=== PATIENT | male | born 1985 | race Caucasian/White ===

== ENCOUNTER 2017-04-05 21:10 | Emergency (ER) | payer MEDICARE, OTHER ==
[~2017-04-05] VITALS: Ht 185.4 cm; Wt 84.1 kg
[~2017-04-05 21:10] MED LIST: ALPRAZOLAM1 MG PO; AMOXICILLIN500 MG OR; AMOXICILLIN500 MG PO; AUGMENTIN500TAB PO; BACTRIM DS1 TAB PO; BACTROBAN2 % EX; BENADRYL 50MG C50 MG PO; BUSPAR10 MG PO; CIPRO500 MG OR; CIPROFLOXACN500 MG PO; CLINDAMYCIN150 MG PO; COGENTIN1 M2 PO; CYCLOBENZAPR10 MG PO; DEPO-MEDROL80 MG/ML IM; DICLOFENAC50 MG PO; FLUOXETINE10 M2 PO; HALDOL1 MG PO; IBUPROFEN800 MG PO; KETOROLAC60 MG/2 ML IJ; KETOROLAC60 MG/2 ML IM; KLONOPIN0.5 MG PO; LORTAB 10 PO; LORTAB 1010 MG PO; LORTAB 5 OR; LORTAB 5/3255 MG PO; LORTAB 7.5 PO; MEDDOSEPAK PO; MELOXICAM7.5 MG PO; MOTRIN800 MG/TAB PO; NAPROSYN375 MG PO; NAPROSYN500 MG OR; NAPROSYN500 MG PO; NO MEDS; PENICILLN VK500 MG OR; PERCOCET 5/325M1 TAB PO; PRILOSEC20 MG OR; PRILOSEC20 MG/CAP PO; ROCEPHIN 1 GM1 GM IM; SEPTRA DS1 TAB OR; SEROQUEL100 MG PO; SERTRALINE HCL50 MG PO; TORADOL OR; TRAMADOL HCL50 MG OR; TRAMADOL HCL50 MG PO; TRILEPTAL150 MG PO; TRILEPTAL300 MG PO; ULTRAM50 M1 PO; ULTRAM50 MG OR; ULTRAM50 MG PO; VICODIN ES1 TAB OR; VICOPROFEN OR; ZOLOFT100 MG PO
[2017-04-05 23:25] VITALS: BP 138/84
== END 2017-04-05 23:25 | disposition home or self-care (01) ==
LOC: ED 21:10
DX: M54.9 Dorsalgia, unspecified (principal); F31.9 Bipolar disorder, unspecified; F41.9 Anxiety disorder, unspecified; K21.9 Gastro-esophageal reflux disease without esophagitis; F17.210 Nicotine dependence, cigarettes, uncomplicated; W10.9XXA Fall (on) (from) unspecified stairs and steps, initial encounter; Y92.009 Unspecified place in unspecified non-institutional (private) residence as the place of occurrence of the external cause

== ENCOUNTER 2018-01-23 14:00 | Emergency (ER) | payer MEDICARE, OTHER ==
[~2018-01-23] VITALS: Ht 185.4 cm; Wt 93.2 kg
[2018-01-23 14:29] VITALS: BP 161/104
[2018-01-23] MEDS ORDERED: ASPERCREME LIDOCA41 TOP (17:05)
[2018-01-23] MEDS ORDERED: MOTRIN400 MG PO (17:05)
== END 2018-01-23 17:30 | disposition left against medical advice (07) ==
LOC: ED 14:00
DX: S39.012A Strain of muscle, fascia and tendon of lower back, initial encounter (principal); S29.012A Strain of muscle and tendon of back wall of thorax, initial encounter; X58.XXXA Exposure to other specified factors, initial encounter; Z91.19 Patient's noncompliance with other medical treatment and regimen

== ENCOUNTER 2018-05-21 01:04 | Emergency (ER) | payer MEDICARE, OTHER ==
[~2018-05-21] VITALS: Ht 185.4 cm; Wt 86.3 kg
[~2018-05-21 01:04] MED LIST changes: +ASPERCREME LIDOCA41 TOP; +MOTRIN400 MG PO
[2018-05-21 01:45] LABS: HEMATOCRIT 40.8 % (39.0-50.0); HEMOGLOBIN 13.5 g/dl (14.0-18.0); IMMATURE GRANULOCYTES 0.5 % (0.0-5.0); MEAN CELL VOLUME 95.3 fL CALC (80.0-100.0); MEAN CORPUSCULAR HGB 31.5 pG CALC (26.0-32.0); MEAN CORPUSCULAR HGB CONC 33.1 g/L CALC (32.0-36.0); NEUT# 10.19 thou/uL (1.82-7.42); RED BLOOD COUNT 4.28 mill/uL (4.70-6.10); RED CELL DISTRI WIDTH 13.5 % (11.5-15.5)
[2018-05-21 01:54] LABS: ALBUMIN 4.3 g/dL (3.2-5.0); ALKALINE PHOSPHATASE 75 u/l (38-126); AMYLASE 39 u/l (30-110); ANION GAP 13 (6-22 (CALC)); BILIRUBIN, TOTAL 0.4 mg/dL (0.0-1.4); BUN 14 mg/dL (9-20); BUN/CREATININE RATIO 18 (12-20 (CALC)); CARBON DIOXIDE 28 mmol/l (22-30); CHLORIDE 106 mmol/l (95-108); CREATININE 0.8 mg/dL (0.7-1.3); GFR > 60 ML/MIN (>=60 (CALC)); GFR FOR AFR.AMER. > 60 ML/MIN (>=60 (CALC)); LIPASE 58 u/l (23-300); POTASSIUM 3.8 mmol/l (3.5-5.1); SGOT/AST 20 u/l (17-59); SGPT/ALT 25 u/l (21-72); SODIUM 142 mmol/l (137-146)
[2018-05-21 02:02] LABS: URINE BLOOD DIPSTICK LARGE (NEGATIVE); URINE COLOR YELLOW; URINE GLUCOSE - DIPSTICK NEGATIVE (NEGATIVE); URINE KETONE TRACE mg/dL (NEGATIVE); URINE LEUK ESTERASE NEGATIVE (NEGATIVE); URINE NITRITE - DIPSTICK NEGATIVE (Negative); URINE PROTEIN - DIPSTICK TRACE mg/dL (NEG-TRACE); URINE SPECIFIC GRAVITY 1.025; URINE UROBILINOGEN - DIPSTICK 0.2 E.U./dL (0.2)
[2018-05-21 02:06] LABS: URINE CLARITY CLOUDY
[2018-05-21 02:07] LABS: URINE BILIRUBIN - DIPSTICK NEGATIVE (NEGATIVE)
[2018-05-21 02:08] LABS: BARBITURATES NEGATIVE (NEGATIVE); COCAINE POSITIVE (NEGATIVE); METHADONE NEGATIVE (NEGATIVE); OXCYCODONE NEGATIVE (NEGATIVE); TETRAHYDROCANNABIONOL POSITIVE (NEGATIVE); TRICYLIC ANTIDEPRESSANTS NEGATIVE (NEGATIVE)
[2018-05-21 02:09] LABS: URINE BACTERIA FEW hpf; URINE MUCUS MANY hpf (NONE-FEW); URINE RBC 25-50 RBC/hpf (0-5); URINE SQUAMOUS EPITHELIAL CELL FEW EPI/hpf (0-FEW)
[2018-05-21 03:03] VITALS: BP 131/34
== END 2018-05-21 03:04 | disposition home or self-care (01) ==
LOC: ED 01:04
PROVIDERS: Family Medicine
DX: N20.0 Calculus of kidney (principal); F17.210 Nicotine dependence, cigarettes, uncomplicated

== ENCOUNTER 2018-05-31 12:22 | Emergency (ER) | payer MEDICARE, OTHER ==
[~2018-05-31] VITALS: Ht 185.4 cm; Wt 90.0 kg
[2018-05-31] MEDS ORDERED: ACULAR LS0.4 % OD (12:53)
[2018-05-31] MEDS ORDERED: ERYTHROMYCIN O3.5 GM OU (12:53)
[2018-05-31 13:10] VITALS: BP 137/84
== END 2018-05-31 13:15 | disposition home or self-care (01) ==
LOC: ED 12:22
DX: S05.01XA Injury of conjunctiva and corneal abrasion without foreign body, right eye, initial encounter (principal); F17.210 Nicotine dependence, cigarettes, uncomplicated; G89.29 Other chronic pain; M54.9 Dorsalgia, unspecified; W20.8XXA Other cause of strike by thrown, projected or falling object, initial encounter; Y93.H2 Activity, gardening and landscaping; Y92.007 Garden or yard of unspecified non-institutional (private) residence as the place of occurrence of the external cause

== ENCOUNTER 2018-10-02 19:51 | Emergency (ER) | payer MEDICARE, OTHER ==
[~2018-10-02] VITALS: Ht 185.4 cm; Wt 81.0 kg
[~2018-10-02 19:51] MED LIST changes: +ACULAR LS0.4 % OD; +ERYTHROMYCIN O3.5 GM OU
[2018-10-02] MEDS ORDERED: NAPROSYN500 MG PO (21:00)
[2018-10-02] MEDS ORDERED: KEFLEX500 M1 PO (21:00)
[2018-10-02 21:05] VITALS: BP 155/85
== END 2018-10-02 21:05 | disposition home or self-care (01) ==
LOC: ED 19:51
DX: L03.011 Cellulitis of right finger (principal); M25.441 Effusion, right hand; M79.644 Pain in right finger(s)

== ENCOUNTER 2020-01-01 | Emergency (ER) | payer MEDICARE, OTHER ==
[~2020-01-01] MED LIST changes: +KEFLEX500 M1 PO
[2020-01-01 19:42] LABS: HEMATOCRIT 40.1 % (39.0-50.0); HEMOGLOBIN 13.1 g/dl (14.0-18.0); IMMATURE GRANULOCYTES 0.4 % (0.0-5.0); MEAN CELL VOLUME 90.3 fL CALC (80.0-100.0); MEAN CORPUSCULAR HGB 29.5 pG CALC (26.0-32.0); MEAN CORPUSCULAR HGB CONC 32.7 g/dL CAL (32.0-36.0); NEUT# 13.2 thou/uL (1.82-7.42); RED BLOOD COUNT 4.44 mill/uL (4.70-6.10); RED CELL DISTRI WIDTH 13.8 % (11.5-15.5)
[2020-01-01 19:59] LABS: ALBUMIN 4.7 g/dL (3.2-5.0); ALKALINE PHOSPHATASE 99 u/l (38-126); BILIRUBIN, TOTAL 0.4 mg/dL (0.0-1.4); BUN 18 mg/dL (9-20); BUN/CREATININE RATIO 19 (12-20 (CALC)); CARBON DIOXIDE 27 mmol/l (22-30); CHLORIDE 101 mmol/l (95-108); CREATININE 0.9 mg/dL (0.7-1.3); GFR > 60 ML/MIN (>=60 (CALC)); GFR FOR AFR.AMER. > 60 ML/MIN (>=60 (CALC)); LIPASE 50 u/l (23-300); SGOT/AST 27 u/l (17-59); SODIUM 137 mmol/l (137-146); TOTAL PROTEIN 7.8 g/dL (6.3-8.2)
[2020-01-01 20:00] LABS: ANION GAP 14 (6-22 (CALC)); POTASSIUM 4.8 mmol/l (3.5-5.1)
== END 2020-01-01 19:44 | disposition left against medical advice (07) ==
DX: R10.31 Right lower quadrant pain (principal); F17.210 Nicotine dependence, cigarettes, uncomplicated; Z91.19 Patient's noncompliance with other medical treatment and regimen

== ENCOUNTER 2020-01-12 | Emergency (ER) | payer MEDICARE, OTHER ==
[2020-01-12] MEDS ORDERED: MOTRIN400 MG PO (11:27)
== END 2020-01-12 11:35 | disposition home or self-care (01) ==
DX: K40.90 Unilateral inguinal hernia, without obstruction or gangrene, not specified as recurrent (principal); Z91.19 Patient's noncompliance with other medical treatment and regimen

== ENCOUNTER 2020-01-30 19:36 | Emergency (ER) | payer MEDICARE, OTHER ==
[2020-01-30 20:32] VITALS: BP 131/79
[2020-01-30] MEDS ORDERED: DICYCLOMINE20 MG PO (20:32)
== END 2020-01-30 20:32 | disposition home or self-care (01) ==
LOC: ED 19:36
DX: K40.90 Unilateral inguinal hernia, without obstruction or gangrene, not specified as recurrent (principal); F17.210 Nicotine dependence, cigarettes, uncomplicated

== ENCOUNTER 2021-04-20 15:45 | Emergency (ER) | payer OTHER ==
[~2021-04-20] VITALS: Ht 185.4 cm; Wt 81.8 kg
[~2021-04-20 15:45] MED LIST changes: +DICYCLOMINE20 MG PO
[2021-04-20 16:02] VITALS: BP 124/78
[2021-04-20 16:53] LABS: HEMATOCRIT 36.8 % (39.0-50.0); HEMOGLOBIN 11.6 g/dl (14.0-18.0); IMMATURE GRANULOCYTES 0.3 % (0.0-5.0); MEAN CORPUSCULAR HGB 30.2 pG CALC (26.0-32.0); MEAN CORPUSCULAR HGB CONC 31.5 g/dL CAL (32.0-36.0); NEUT# 3.56 thou/uL (1.82-7.42); RED BLOOD COUNT 3.84 mill/uL (4.70-6.10); RED CELL DISTRI WIDTH 13.8 % (11.5-15.5)
[2021-04-20 16:54] LABS: MEAN CELL VOLUME 95.8 fL CALC (80.0-100.0)
[2021-04-20 17:04] LABS: ALBUMIN 3.4 g/dL (3.2-5.0); ALKALINE PHOSPHATASE 68 u/l (38-126); ANION GAP 9 (6-22 (CALC)); BUN 15 mg/dL (9-20); BUN/CREATININE RATIO 20 (12-20 (CALC)); CARBON DIOXIDE 29 mmol/l (22-30); CHLORIDE 103 mmol/l (95-108); CREATININE 0.8 mg/dL (0.7-1.3); GFR > 60 ML/MIN (>=60 (CALC)); GFR FOR AFR.AMER. > 60 ML/MIN (>=60 (CALC)); LIPASE 57 u/l (23-300); POTASSIUM 3.9 mmol/l (3.5-5.1); SGOT/AST 23 u/l (17-59); SODIUM 136 mmol/l (137-146)
[2021-04-20] MEDS ORDERED: KEFLEX500 MG PO (17:55)
[2021-04-20] MEDS ORDERED: IBUPROFEN600 MG PO (17:56)
== END 2021-04-20 18:24 | disposition home or self-care (01) ==
LOC: ED 15:45
DX: K42.9 Umbilical hernia without obstruction or gangrene (principal); L03.316 Cellulitis of umbilicus; F17.210 Nicotine dependence, cigarettes, uncomplicated
CPT/HCPCS: Q9967

== ENCOUNTER 2021-06-27 23:47 | Emergency (ER) | payer OTHER ==
[~2021-06-27] VITALS: Ht 185.4 cm; Wt 81.8 kg
[~2021-06-27 23:47] MED LIST changes: +IBUPROFEN600 MG PO; +KEFLEX500 MG PO
[2021-06-28] MEDS ORDERED: NAPROXEN500 MG PO (00:16)
[2021-06-28] MEDS ORDERED: TYLENOL # 31 TA1 PO (00:16)
[2021-06-28] MEDS ORDERED: CLINDAMYCIN300 M1 PO (00:16)
[2021-06-28 00:52] VITALS: BP 137/85
== END 2021-06-28 01:00 | disposition home or self-care (01) ==
LOC: ED 23:47
DX: K04.7 Periapical abscess without sinus (principal); K02.9 Dental caries, unspecified; F17.200 Nicotine dependence, unspecified, uncomplicated

== ENCOUNTER 2021-09-21 12:13 | Emergency (ER) | payer OTHER ==
[~2021-09-21] VITALS: Ht 185.4 cm; Wt 87.0 kg
[~2021-09-21 12:13] MED LIST changes: +CLINDAMYCIN300 M1 PO; +NAPROXEN500 MG PO; +TYLENOL # 31 TA1 PO
[2021-09-21] MEDS ORDERED: IBUPROFEN600 MG PO (13:36)
[2021-09-21 13:56] VITALS: BP 142/82
== END 2021-09-21 13:50 | disposition home or self-care (01) ==
LOC: ED 12:13
DX: M25.512 Pain in left shoulder (principal); F31.9 Bipolar disorder, unspecified; F17.210 Nicotine dependence, cigarettes, uncomplicated; W20.8XXA Other cause of strike by thrown, projected or falling object, initial encounter; Y93.E6 Activity, residential relocation; Y92.038 Other place in apartment as the place of occurrence of the external cause

== ENCOUNTER 2021-09-27 13:22 | Emergency (ER) | payer OTHER ==
[~2021-09-27] VITALS: Ht 185.4 cm; Wt 86.0 kg
[2021-09-27] MEDS ORDERED: HYDROCO/APAP1 TA9 PO (14:32)
[2021-09-27 15:24] VITALS: BP 153/90
== END 2021-09-27 15:24 | disposition home or self-care (01) ==
LOC: ED 13:22
DX: S46.812A Strain of other muscles, fascia and tendons at shoulder and upper arm level, left arm, initial encounter (principal); F31.9 Bipolar disorder, unspecified; F17.210 Nicotine dependence, cigarettes, uncomplicated; W20.8XXA Other cause of strike by thrown, projected or falling object, initial encounter; Y93.89 Activity, other specified; Y92.009 Unspecified place in unspecified non-institutional (private) residence as the place of occurrence of the external cause

== ENCOUNTER 2022-06-04 06:49 | Emergency (ER) | payer MEDICARE, OTHER ==
[~2022-06-04] VITALS: Ht 185.4 cm; Wt 81.0 kg
[~2022-06-04 06:49] MED LIST changes: +HYDROCO/APAP1 TA9 PO
[2022-06-04 06:56] VITALS: BP 140/89
[2022-06-04 07:01] VITALS: BP 145/97
[2022-06-04] MEDS ORDERED: CEPHALEXIN500 M1 PO ×2 (07:17→07:56)
[2022-06-04 07:30] VITALS: BP 126/92
== END 2022-06-04 07:58 | disposition home or self-care (01) ==
LOC: ED 06:49
PROC: 0HQKXZZ Repair Right Lower Leg Skin, External Approach (ICD-10-PCS; principal; 2022-06-04)
DX: S81.811A Laceration without foreign body, right lower leg, initial encounter (principal); F31.9 Bipolar disorder, unspecified; F17.200 Nicotine dependence, unspecified, uncomplicated; W26.8XXA Contact with other sharp object(s), not elsewhere classified, initial encounter

== ENCOUNTER 2022-07-24 14:38 | Emergency (ER) | payer MEDICARE, OTHER ==
[~2022-07-24] VITALS: Ht 185.4 cm; Wt 84.1 kg
[~2022-07-24 14:38] MED LIST changes: +CEPHALEXIN500 M1 PO
[2022-07-24 14:42] VITALS: BP 120/73
[2022-07-24 14:45] VITALS: BP 120/85
[2022-07-24] MEDS ORDERED: CEPHALEXIN500 MG PO (15:32)
[2022-07-24 15:33] VITALS: BP 120/85
== END 2022-07-24 15:45 | disposition home or self-care (01) ==
LOC: ED 14:38
PROC: 0HQEXZZ Repair Left Lower Arm Skin, External Approach (ICD-10-PCS; principal; 2022-07-24)
DX: S51.812A Laceration without foreign body of left forearm, initial encounter (principal); F31.9 Bipolar disorder, unspecified; F17.210 Nicotine dependence, cigarettes, uncomplicated; W26.9XXA Contact with unspecified sharp object(s), initial encounter; Y93.89 Activity, other specified; Y92.008 Other place in unspecified non-institutional (private) residence as the place of occurrence of the external cause